=== PATIENT | female | born 1975 | race African-American/Black ===

== ENCOUNTER 2022-10-07 16:07 | Emergency (ER) | payer OTHER ==
[2022-10-07 16:21] VITALS: BP 134/74; PULSE 71; RESP 18; TEMP 98; BMI 25.8
[2022-10-07 17:35] LABS: BASO % 1.1 % (0-2.0); EOS % 2.1 % (0-4.5); HEMATOCRIT 40.7 % (32.4-45.2); HEMOGLOBIN 13.4 GM/dL (10.7-15.3); LYMPH % 26.1 % (8-40); MCH 29.3 pg (25.7-33.7); MCHC 32.9 g/dl (32.0-36.0); MEAN CELL VOLUME 89.3 fl (80-96); MEAN PLT VOLUME 8.6 fl (7.5-11.1); MONO % 10.1 % (3.8-10.2); NEUT % 60.6 % (42.8-82.8); PLATELET COUNT 313 10^3/uL (134-434); RBC 4.56 M/mm3 (3.60-5.2); RDW 13.9 % (11.6-15.6)
[2022-10-07 17:38] LABS: EPI CELLS 3 /uL (0-25.1); HYALINE CASTS 0 /uL (0-3.1); URINE APPEARANCE CLEAR; URINE BACTERIA 30 /uL (0-1359); URINE BILIRUBIN NEGATIVE (NEGATIVE); URINE COLOR YELLOW; URINE GLUCOSE (UA) NEGATIVE (NEGATIVE); URINE KETONE 1+ (NEGATIVE); URINE LEUK ESTERASE TRACE (NEGATIVE); URINE NITRITE NEGATIVE (NEGATIVE); URINE PROTEIN NEGATIVE (NEGATIVE); URINE RBC 42 /uL (0-23.9); URINE UROBILINOGEN 0.2 mg/dL (0.2-1.0); URINE WBC 11 /uL (0-25.8)
[2022-10-07 17:51] LABS: POTASSIUM 4.3 mmol/L (3.5-5.1)
[2022-10-07 17:54] LABS: BLOOD UREA NITROGEN 4.4 mg/dL (7-18); CALCIUM 9.4 mg/dL (8.5-10.1)
[2022-10-07 17:58] LABS: CREATININE 0.5 mg/dL (0.55-1.3)
[2022-10-07 18:00] LABS: BILIRUBIN,TOTAL 0.9 mg/dL (0.2-1); TOT PROT 7.5 g/dl (6.4-8.2)
[2022-10-07 18:11] LABS: HCG,QUALITATIVE URINE Positive
== END 2022-10-07 21:20 | disposition home or self-care (01) ==
LOC: JERFT 16:07 → JER 16:07 → JERFT 21:20
DX: O03.9 Complete or unspecified spontaneous abortion without complication (principal); Z3A.10 10 weeks gestation of pregnancy
CPT/HCPCS: 36415; 76817-TC; 80053; 81003; 84702; 84703; 85025; 86850; 86900; 86901; 99284-25